=== PATIENT | female | born 1990 | race Caucasian/White ===

== ENCOUNTER 2016-10-10 01:36 | Emergency (ER) | payer BC ==
[2016-10-10 02:04] VITALS: BP 129/68; PULSE 70; RESP 16; TEMP 98.3; O2SAT 100
--- NOTE | 2016-10-10 02:08 | ED PDOC ---
HPI: Dental Pain/Injury Time Seen by Provider: 10/10/16 01:54 Chief Complaint (Nursing): Dental Pain Additional Complaint(s): 25yo F with no PMHx c/o dental pain. Pt had tooth extraction 3 days [address] Dr[address] Hills in [facility], rx tylenol 500mg PO QID prn and ibuprofen 800mg PO prn. a/w nausea. right tooth extraction, pain constant, not relieved with tylenol, ibuprofen. Last dose of pain meds 6 hours ago. Took tylenol 1000mg PO and 1 hr afterwards, ibuprofen 800mg PO, a/w numbness of the lower extremities which have resolved. Denies fever, chills, vomiting, discharge from tooth extraction. Past Medical History Reviewed: Historical Data, Nursing Documentation, Vital Signs Vital Signs: Last Vital Signs Temp 98.3 F 10/10/16 01:46 Pulse 70 10/10/16 01:46 Resp 16 10/10/16 01:46 BP 129/68 10/10/16 01:46 Pulse Ox 100 10/10/16 01:46 - Medical History PMH: No Chronic Diseases - Surgical History Surgical History: No Surg Hx - Family History Family History: States: No Known Family Hx - Social History Current smoker - smoking cessation education provided: No Ex-Smoker (has not smoked in the last 12 months): Yes Alcohol: None Drugs: Denies - Home Medications Home Medications: Ambulatory Orders Medication Instructions Recorded Acetaminophen/Codeine 1 tab PO Q6 PRN #4 tab 10/10/16 [Tylenol/Codeine 300 MG/30 MG] - Allergies Allergies/Adverse Reactions: Allergies Allergy/AdvReac Type Severity Reaction Status Date / Time No Known Allergies Allergy Verified 10/10/16 01:46 Review of Systems ROS Statement: Except As Marked, All Systems Reviewed And Found Negative ENT: Positive for: Other (dental pain) Physical Exam - Physical Exam Appears: Positive for: Non-toxic, No Acute Distress Head Exam: Positive for: ATRAUMATIC, NORMAL INSPECTION Skin: Positive for: Warm, Dry Eye Exam: Positive for: Normal appearance. Negative for: Scleral icterus ENT: Positive for: Other (no discharge, no swelling). Negative for: Pharyngeal Erythema, Tonsillar Swelling Neck: Positive for: Normal, Supple Cardiovascular/Chest: Positive for: Regular Rate, Rhythm Respiratory: Positive for: Normal Breath Sounds Gastrointestinal/Abdominal: Positive for: Bowel Sounds, Soft Back: Positive for: Normal Inspection Extremity: Positive for: Normal ROM. Negative for: Tenderness, Pedal Edema Neurologic/Psych: Positive for: Alert, Oriented - ECG O2 Sat by Pulse Oximetry: 100 Medical Decision Making Medical Decision Makin DDx medication side effect, dental pain checked on controlled substance tracker, pt not currently on controlled substance in the state urine preg zofran 4mg PO toradol 30mg IM reassessment 0304 pain, nausea improved pt ready to go home d/c home, follow up with dentist in 2-3 days, d/c with zofran and tylenol#3 Disposition - Clinical Impression Clinical Impression: Pain, dental - Disposition Disposition: Routine/Home Disposition Time: 03:10 Condition: STABLE Prescriptions: Acetaminophen/Codeine [Tylenol/Codeine 300 MG/30 MG] 1 tab PO Q6 PRN #4 tab PRN Reason: dental pain Instructions: Toothache (ED)
== END 2016-10-10 03:50 | disposition home or self-care (01) ==
LOC: H.ER 01:36
DX: K08.89 Other specified disorders of teeth and supporting structures (principal); Z87.891 Personal history of nicotine dependence
CPT/HCPCS: 81025; 96372; 99282; J1885

== ENCOUNTER 2016-10-22 19:32 | Emergency (ER) | payer BC ==
[2016-10-22 19:54] VITALS: BP 120/64; PULSE 79; RESP 16; TEMP 98.7; O2SAT 98
[2016-10-22] MEDS ORDERED: Sodium Chloride 0.9% 1,000 ML IV STA (21:09)
--- NOTE | 2016-10-22 21:11 | ED PDOC ---
HPI: Abdomen Time Seen by Provider: 10/22/16 20:32 Chief Complaint (Nursing): GI Problem Chief Complaint (Provider): Vomiting History Per: Patient Additional Complaint(s): 25 yo female, no PMH, presents to ED with complaints of acute onset of nausea, vomiting and diarrhea that developed ~ 15-20 minutes after ingesting [place] food. No fever or chills. Pt attempted to take Pepto, but vomited after the medication. Past Medical History Reviewed: Nursing Documentation, Vital Signs Vital Signs: Last Vital Signs Temp 98.7 F 10/22/16 19:50 Pulse 79 10/22/16 19:50 Resp 16 10/22/16 19:50 BP 120/64 10/22/16 19:50 Pulse Ox 98 10/23/16 05:08 - Medical History PMH: No Chronic Diseases - Surgical History Surgical History: No Surg Hx - Family History Family History: States: No Known Family Hx - Living Arrangements Living Arrangements: With Family - Home Medications Home Medications: Ambulatory Orders Medication Instructions Recorded Ciprofloxacin [Cipro] 500 mg PO BID #6 tab 10/23/16 Dicyclomine [Bentyl] 10 mg PO QID PRN #10 cap 10/23/16 - Allergies Allergies/Adverse Reactions: Allergies Allergy/AdvReac Type Severity Reaction Status Date / Time No Known Allergies Allergy Verified 10/22/16 19:50 Review of Systems ROS Statement: Except As Marked, All Systems Reviewed And Found Negative Gastrointestinal: Positive for: Nausea, Vomiting, Abdominal Pain, Diarrhea Physical Exam - Reviewed Nursing Documentation Reviewed: Yes Vital Signs Reviewed: Yes - Physical Exam Appears: Positive for: Well, Non-toxic, No Acute Distress Head Exam: Positive for: ATRAUMATIC, NORMAL INSPECTION, NORMOCEPHALIC Skin: Positive for: Normal Color, Warm, DRY Eye Exam: Positive for: EOMI, Normal appearance, PERRL ENT: Positive for: Normal ENT Inspection Neck: Positive for: Normal, Painless ROM Cardiovascular/Chest: Positive for: Regular Rate, Rhythm Respiratory: Positive for: CNT, Normal Breath Sounds Gastrointestinal/Abdominal: Positive for: Bowel Sounds, Soft, Tenderness ( diffuse). Negative for: Distended, Guarding Back: Positive for: Normal Inspection Extremity: Positive for: Normal ROM Neurologic/Psych: Positive for: Alert, Oriented - Laboratory Results Result Diagrams: 10/22/16 21:30 10/22/16 21:30 - ECG O2 Sat by Pulse Oximetry: 98 Medical Decision Making Medical Decision Making: IV access established and treatment initiated with IVF, Zofran, Morphine and Pepcid Labs resulted and reviewed with pt who demonstrated full understanding. Pt on re-eval reports pain continues. Pt medicated with Additional [address] scan obtained CT IMPRESSION: Sigmoid constipation. Small hazy left lower lung opacity. On second re-eval, pt reports feeling improved. Results of CT discussed. Pt able for discharge home at this time. Abdomen soft non tender and non distended. Pt remains afebrile Disposition - Clinical Impression Clinical Impression: Gastroenteritis, UTI (urinary tract infection) - Patient ED Disposition Is Patient to be Admitted: No - Disposition Disposition: Routine/Home Disposition Time: 05:08 Condition: STABLE Prescriptions: Ciprofloxacin [Cipro] 500 mg PO BID #6 tab Dicyclomine [Bentyl] 10 mg PO QID PRN #10 cap PRN Reason: Pain, Mild (1-3) Instructions: Urinary Tract Infection in Women (ED), Gastroenteritis (ED)
[2016-10-22 21:39] LABS: BASO % 0.1 % (0.0-2.0); EOS % 0.3 % (0.0-4.0); HEMATOCRIT 38.3 % (34.0-47.0); LYMPH # 0.6 K/uL (1.0-4.3); LYMPH % 6.3 % (20.0-40.0); MEAN CORPUSCULAR HGB CONC 34.5 g/dL (33.0-37.0); MEAN PLATELET VOLUME 7.1 fl (7.2-11.7); MONO # 0.3 K/uL (0.0-0.8); MONO % 2.7 % (0.0-10.0); NEUT # 8.9 K/uL (1.8-7.0); NEUT % 90.6 % (50.0-75.0); NRBC % 0.1 % (0.0-0.0); PLATELET COUNT 318 K/uL (130-400); RED CELL DISTRIBUTION WIDTH 13.7 % (11.5-14.5); WHITE BLOOD COUNT 9.8 K/uL (4.8-10.8)
[2016-10-22 21:51] LABS: ALB/GLOB RATIO 1.3 (1.0-2.1); ALKALINE PHOSPHATASE 75 U/L (38-126); ALT/SGPT 24 U/L (9-52); AMYLASE 55 U/L (30-110); AST/SGOT 20 U/L (14-36); BLOOD UREA NITROGEN 14 mg/dl (7-17); CALCIUM 9.2 mg/dL (8.4-10.2); CARBON DIOXIDE 27 mmol/L (22-30); CHLORIDE 101 mmol/L (98-107); GFR AFRICAN-AMERICAN > 60; GLUCOSE,RANDOM 100 mg/dL (65-105); LIPASE 22 U/L (23-300); POTASSIUM 3.8 MMOL/L (3.6-5.0); SODIUM 138 mmol/l (132-148); TOTAL PROTEIN 7.5 G/DL (6.3-8.2)
[2016-10-22 23:37] LABS: NEUTROPHIL 90 % (42-75); TOTAL CELLS COUNTED 100
[2016-10-23] MEDS ORDERED: Iohexol 240 (50 ml) PO ONE (00:16)
[2016-10-23 02:26] LABS: RBC URINE 5 /hpf (0-3); URINE BACTERIA RARE (<OCC); URINE BILIRUBIN NEGATIVE (NEGATIVE); URINE BLOOD NEGATIVE (NEGATIVE); URINE COLOR YELLOW (YELLOW); URINE GLUCOSE (UA) NEG (Normal); URINE KETONE TRACE mg/dL (NEGATIVE); URINE LEUKOCYTE ESTERASE SMALL Leu/uL (Negative); URINE PROTEIN NEGATIVE (NEGATIVE); URINE UROBILINOGEN 0.2-1.0 mg/dL (0.2-1.0); WBC URINE 8 /hpf (0-5)
[2016-10-23] MEDS ORDERED: Iohexol 300 100 ML IJ ONE (02:48)
[2016-10-23] MEDS ORDERED: Sodium Chloride 0.9% 50 ML IV ONE (02:48)
--- NOTE | 2016-10-23 05:00 | CT ---
EXAM: CT Abdomen and Pelvis With Intravenous Contrast CLINICAL HISTORY: 25 years old, female; Pain; Abdominal pain; Localized; Left lower quadrant (llq); Additional info: Llq pain TECHNIQUE: Axial computed tomography images of the abdomen and pelvis with intravenous contrast. This CT exam was performed using one or more of the following dose reduction techniques: automated exposure control, adjustment of the mA and/or kV according to patient size, and/or use of iterative reconstruction technique. Coronal and sagittal reformatted images were created and reviewed. CONTRAST: 95 mL of [id number] administered intravenously. EXAM DATE/TIME: 10/23/2016 12:16 AM COMPARISON: No relevant prior studies available. FINDINGS: Small amount of hazy opacity left lower lung that may just represent dependent atelectasis, however it is asymmetric and clinical correlation is recommended with regards to the possibility of early developing infiltrate. The liver is normal. The spleen is normal. The pancreas is normal. No gallstones. No hydronephrosis or perinephric stranding. The wall of the mid-distal left colon appears mildly thickened however this is partially due to incomplete distention. There is no stranding in the surrounding fat to suggest active inflammatory/infectious process. Moderate amount of stool within the sigmoid colon. A normal appendix is identified coronal images 40 through 55, axial series 2 images 60-64. No abnormalities of the uterus or ovaries identified. The IVC is prominent. It is likely an incidental finding although can also be associated with right-sided cardiac congestion. Given he patient's age, I favor the former. Clinical correlation recommended. IMPRESSION: Sigmoid constipation. Small hazy left lower lung opacity.
== END 2016-10-23 05:26 | disposition home or self-care (01) ==
LOC: H.ER 19:32
DX: K52.9 Noninfective gastroenteritis and colitis, unspecified (principal); R11.2 Nausea with vomiting, unspecified; R10.9 Unspecified abdominal pain
CPT/HCPCS: 74177; 80053; 81003; 81025; 82150; 83690; 85025; 96374; 96375; 99285; J2270; J2405; J7040; Q9966; Q9967

== ENCOUNTER 2017-08-01 16:53 | Emergency (ER) | payer BC ==
[2017-08-01 17:30] VITALS: BP 118/71; RESP 16; O2SAT 100
[2017-08-01 18:18] VITALS: PULSE 89; TEMP 98.7
--- NOTE | 2017-08-01 18:40 | CP.PCM.CON ---
History of Present Illness - History of Present Illness History of Present Illness: Podiatry Consult Note - Dr. Smith 26 year old female patient unremarkable PMHx seen and evaluated in ED for pain in right 4th toe. Patient hemodynamically stable and NAD. Patient states yesterday she stubbed her toe against a chair, and since has not been able to bear any weight in her forefoot. Patient admits to taking Ibuprofen which has not provided any pain relief. Currently, patient reports 6/10 pain that increases significantly when any pressure is placed onto her toe. Patient offers no other complaints. Denies N/V/F/D/C/SOB/calf pain. PMHx: unremarkable PSH: FH: non-contributory SH: occasional ETOH, denies tobacco/illicit drug use All: NKDA Review of Systems - Review of Systems All systems: reviewed and no additional remarkable complaints except (as per HPI ) Past Patient History - Past Social History Smoking Status: Never Smoked - PSYCHIATRIC Hx Substance Use: No - SURGICAL HISTORY Hx Surgeries: No - ANESTHESIA Hx Anesthesia: No Meds Home Medications: Home Medication List Medication Instructions Recorded Confirmed Type Ondansetron [Zofran] 4 mg PO Q6H PRN #10 tab 08/01/17 Rx Ranitidine HCl [Zantac 75] 75 mg PO BID #10 tablet 08/01/17 Rx traMADol [Ultram] 50 mg PO TID PRN #12 tab 08/01/17 Rx Allergies/Adverse Reactions: Allergies Allergy/AdvReac Type Severity Reaction Status Date / Time No Known Allergies Allergy Verified 10/22/16 19:50 Physical Exam - Constitutional Appears: Well, Non-toxic, No Acute Distress - Extremities Exam Additional comments: RLE focused physical exam: VASC: DP and PT pulses palpable 2/4. CFT <3 seconds noted to digits x5. Temperature gradient cool to cool. Non-pitting edema noted to 4th digit. NEURO: Light touch and protective sensation intact. DERM: No open lesions noted. Ecchymosis noted to medial aspect of 4th digit. Erythema noted circumfirentially around 4th digit. ORTHO: Pain on palpation 4th digit. Pain upon 4th MPJ ROM. Muscle strength 5/5 for all dorsiflexors, plantarflexors, inverters, and everters. - Neurological Exam Neurological exam: Alert, Oriented x3 - Psychiatric Exam Psychiatric exam: Normal Affect, Normal Mood Results - Vital Signs Recent Vital Signs: Last Vital Signs Temp 98.7 F 08/01/17 18:18 Pulse 89 08/01/17 18:18 Resp 16 08/01/17 17:25 BP 118/71 08/01/17 17:25 Pulse Ox 100 08/01/17 17:25 Assessment & Plan - Assessment and Plan (Free Text) Assessment: 26 year old female patient unremarkable PMHx with incomplete nondisplaced 4th proximal phalanx fracture secondary to trauma Plan: Patient seen and evaluated Discussed with attending, Dr. Smith Right foot XR reviewed: 4th proximal phalanx hairline fracture Right 3rd and 4th digits caitlin splinted Surgical shoe dispensed to patient. Advised patient to WBAT in surgical shoe at all times when ambulating. Recommend RICE Pain control per ED Stable per podiatry standpoint Thank you for the consult, please reconsult podiatry as needed
--- NOTE | 2017-08-02 08:03 | RAD ---
PROCEDURE: Right Foot Radiographs. HISTORY: 4th digit trauma COMPARISON: None. FINDINGS: BONES: No acute fracture or destructive bony lesion identified. JOINTS: Normal. SOFT TISSUES: Normal. OTHER FINDINGS: None. IMPRESSION: Unremarkable right foot radiographs.
--- NOTE | 2017-08-02 08:25 | CARD ---
APPROVED REPORT EKG Measurement Heart [id number] <Conclusion> Normal sinus rhythm with sinus arrhythmia Normal ECG
--- NOTE | 2017-08-11 13:41 | ED PDOC ---
Lower Extremity Pain/Injury Time Seen by Provider: 08/01/17 17:33 Chief Complaint (Nursing): Abdominal Pain Chief Complaint (Provider): R foot injury History Per: Patient Current Symptoms Are (Timing): Still Present Severity: Moderate Additional Complaint(s): 26yo female struck R foot on furniture day prior to visit injuring mostly 4th digit of foot. denies ankle, knee or hip pain/trauma. Also c/o epigastric burning after taking motrin for foot pain. Denies melena, hematemesis, fever or weakness. - Ankle/Foot Description Of Injury: Struck Against Object Past Medical History Reviewed: Historical Data Vital Signs: Last Vital Signs Temp 98.7 F 08/01/17 18:18 Pulse 89 08/01/17 18:18 Resp 16 08/01/17 17:25 BP 118/71 08/01/17 17:25 Pulse Ox 100 08/01/17 17:25 - Medical History PMH: No Chronic Diseases - Family History Family History: States: Unknown Family Hx - Home Medications Home Medications: Ambulatory Orders Medication Instructions Recorded Ciprofloxacin [Cipro] 500 mg PO BID #6 tab 10/23/16 Dicyclomine [Bentyl] 10 mg PO QID PRN #10 cap 10/23/16 Ondansetron [Zofran] 4 mg PO Q6H PRN #10 tab 08/01/17 Ranitidine HCl [Zantac 75] 75 mg PO BID #10 tablet 08/01/17 traMADol [Ultram] 50 mg PO TID PRN #12 tab 08/01/17 - Allergies Allergies/Adverse Reactions: Allergies Allergy/AdvReac Type Severity Reaction Status Date / Time No Known Allergies Allergy Verified 10/22/16 19:50 Review of Systems Musculoskeletal: Positive for: Foot Pain. Negative for: Neck Pain, Back Pain, Leg Pain Skin: Negative for: Lesions, Bruising Neurological: Negative for: Weakness, Numbness Physical Exam - Reviewed Nursing Documentation Reviewed: Yes Vital Signs Reviewed: Yes - Physical Exam Appears: Positive for: Well, Non-toxic Head Exam: Positive for: ATRAUMATIC Respiratory: Negative for: Respiratory Distress Extremity: Positive for: Tenderness (R foot 4th digit and metatarsals) - ECG O2 Sat by Pulse Oximetry: 100 - Radiology X-Ray: Interpreted by Mn X-Ray Interpretation: Other (likely hairline fracture 4th digit) Medical Decision Making Medical Decision Making: podiatry consult was obtained and surgical shoe fitted by podiatry resident, confirmed by MD pain medicine offered, pepcid given for gastric upset likely NSAID related, improved on re-eval and eating rice without issue. Rx provided followup podiatry Disposition - Clinical Impression Clinical Impression: Toe fracture, right, Gastritis - Patient ED Disposition Is Patient to be Admitted: No - Disposition Referrals: Podiatry Clinic [Outside] Disposition Time: 18:00 Condition: STABLE Additional Instructions: Followup with podiatry in one week. Take medication as directed for pain. Prescriptions: Ondansetron [Zofran] 4 mg PO Q6H PRN #10 tab PRN Reason: Nausea/Vomiting Ranitidine HCl [Zantac 75] 75 mg PO BID #10 tablet traMADol [Ultram] 50 mg PO TID PRN #12 tab PRN Reason: Pain, Moderate (4-7) Instructions: Toe Fracture, Gastritis Forms: [employer] ([place])
== END 2017-08-01 20:00 | disposition home or self-care (01) ==
LOC: H.ER 16:53
DX: S92.514A Nondisplaced fracture of proximal phalanx of right lesser toe(s), initial encounter for closed fracture (principal); W22.03XA Walked into furniture, initial encounter; Y92.9 Unspecified place or not applicable; K29.70 Gastritis, unspecified, without bleeding

== ENCOUNTER 2018-05-15 17:41 | Emergency (ER) | payer BC ==
[2018-05-15 20:10] VITALS: BP 115/63; PULSE 84; RESP 14; TEMP 98.4; O2SAT 97
--- NOTE | 2018-05-15 22:06 | ED PDOC ---
Lower Extremity Pain/Injury Time Seen by Provider: 05/15/18 20:37 Chief Complaint (Nursing): Lower Extremity Problem/Injury Chief Complaint (Provider): Lower Extremity Problem/Injury History Per: Patient History/Exam Limitations: no limitations Onset/Duration Of Symptoms: Days (2x) Current Symptoms Are (Timing): Still Present Severity: Moderate Additional Complaint(s): 27 year old female with no past medical history presents to the ED for an evaluation of a left lower extremity problem. Patient states that last night, she hit her right foot against wooden steps. Patient's right great toe had an acrylic nail over it, which started breaking, so she removed it herself. Patient reports experiencing pain to the distal toe today. Patient reports taking motrin prior to arrival. Patient denies having any other complaints. PMD: Justen Major MD - Ankle/Foot Description Of Injury: Struck Against Object Past Medical History Reviewed: Historical Data, Nursing Documentation, Vital Signs Vital Signs: Last Vital Signs Temp 98.4 F 05/15/18 20:04 Pulse 84 05/15/18 20:04 Resp 14 05/15/18 20:04 BP 115/63 05/15/18 20:04 Pulse Ox 97 05/15/18 20:04 - Medical History PMH: No Chronic Diseases - Surgical History Surgical History: - Family History Family History: States: No Known Family Hx - Social History Alcohol: Other (yes) Drugs: Denies - Home Medications Home Medications: Ambulatory Orders Medication Instructions Recorded Ciprofloxacin [Cipro] 500 mg PO BID #6 tab 10/23/16 Dicyclomine [Bentyl] 10 mg PO QID PRN #10 cap 10/23/16 Ondansetron [Zofran] 4 mg PO Q6H PRN #10 tab 08/01/17 Ranitidine HCl [Zantac 75] 75 mg PO BID #10 tablet 08/01/17 traMADol [Ultram] 50 mg PO TID PRN #12 tab 08/01/17 oxyCODONE/Acetaminophen [Percocet 1 ea PO Q6H PRN #10 tab 05/15/18 5/325 mg Tab] - Allergies Allergies/Adverse Reactions: Allergies Allergy/AdvReac Type Severity Reaction Status Date / Time No Known Allergies Allergy Verified 05/15/18 20:10 Review of Systems ROS Statement: Except As Marked, All Systems Reviewed And Found Negative Musculoskeletal: Positive for: Other (pain to the right great distal toe) Physical Exam - Reviewed Nursing Documentation Reviewed: Yes Vital Signs Reviewed: Yes - Physical Exam Appears: Positive for: Well, Non-toxic, No Acute Distress Head Exam: Positive for: ATRAUMATIC, NORMOCEPHALIC Skin: Positive for: Normal Color, Warm, Dry Extremity: Positive for: Tenderness (tenderness to the right great distal toe. (-) swelling, (-) erythema. (+) 1/3 of toenail remaining, looks thickened. (+) ecchymosis under nail.) Neurologic/Psych: Positive for: Alert, Oriented (3x) - ECG O2 Sat by Pulse Oximetry: 97 (RA) Pulse Ox Interpretation: Normal Medical Decision Making Medical Decision Makin:37 Initial impression: 27 year old female with right great toe pain, status post injury. Initial plan: * XRay foot right 3 views * reevaluation * Possibe fracture, left great toe * * Follow-up with podiatry, surgical shoe given. Scribe Attestation: Documented by Maricruz Gillespie, acting as a scribe for Isaura Gutierrez PA-C. Provider Scribe Attestation: All medical record entries made by the Scribe were at my direction and personally dictated by me. I have reviewed the chart and agree that the record accurately reflects my personal performance of the history, physical exam, medical decision making, and the department course for this patient. I have also personally directed, reviewed, and agree with the discharge instructions and disposition. Disposition - Clinical Impression Clinical Impression: Toe injury - Patient ED Disposition Is Patient to be Admitted: No - Disposition Disposition: Routine/Home Disposition Time: 03:22 Condition: GOOD Prescriptions: oxyCODONE/Acetaminophen [Percocet 5/325 mg Tab] 1 ea PO Q6H PRN #10 tab PRN Reason: Pain, Severe (8-10) Instructions: Toe Injury (DC) Forms: [employer] ([place]), [facility] ED School/Work Excuse
--- NOTE | 2018-05-16 10:44 | RAD ---
Date of service: 05/15/2018 PROCEDURE: Right Foot Radiographs. HISTORY: great toe injury COMPARISON: None. FINDINGS: BONES: There is an acute nondisplaced fracture in the tuft of the distal phalanx of the great toe. JOINTS: Normal. SOFT TISSUES: Severe soft tissue swelling in the great toe. OTHER FINDINGS: None. IMPRESSION: Acute nondisplaced fracture in the tuft of the distal phalanx of the great toe with surrounding severe soft tissue swelling. The final report has been tagged to the PA review and ER physician folder.
--- NOTE | 2018-05-17 13:07 | ED PDOC ---
ED Additional Note - Date & Time of Evaluation Date of Evaluation: 05/17/18 Time of Evaluation: 13:00 - Physician Additional Note Physician Additional Note: PA performing radiology call backs Right foot x-ray 05/15: Acute nondisplaced fracture in the tuft of the distal phalanx of the great toe with surrounding severe soft tissue swelling. Patient called and informed of x-ray findings. She continues to have significant pain and difficulty bearing weight. Getting some relief with Ibuprofen and Percocet. Pt referred to Dr. Tom for f/u of toe fracture and informed to continue same medications, keep her foot elevated as often as possible and to tape great toe to next toe to try to immobilize it. Patient demonstrated understanding and will call Podiatry for f/u today.
== END 2018-05-15 22:13 | disposition home or self-care (01) ==
LOC: H.ER 17:41
DX: S99.921A Unspecified injury of right foot, initial encounter (principal); W22.09XA Striking against other stationary object, initial encounter; S92.424A Nondisplaced fracture of distal phalanx of right great toe, initial encounter for closed fracture

== ENCOUNTER 2018-05-17 18:30 | Emergency (ER) | payer BC ==
--- NOTE | 2018-05-17 19:10 | ED PDOC ---
Lower Extremity Pain/Injury Time Seen by Provider: 05/17/18 18:50 Chief Complaint (Nursing): Lower Extremity Problem/Injury Chief Complaint (Provider): Toe Injury History Per: Patient History/Exam Limitations: no limitations Onset/Duration Of Symptoms: Days (since Tuesday05/14/18) Current Symptoms Are (Timing): Still Present Additional Complaint(s): Patient is a 27 year old female who presents to the ED for evaluation of continued left big toe pain. Patient reports that on 05/14/18 she stubbed her big toe against a stair. Patient reports she was seen in the ED on Tuesday05/15/18 and the preliminary XR read was normal. Patient reports today she received a call telling her to return to the ED as her big toe had a fracture per radiology report. Patient states she has been taking prescribed Percocet for pain, last dose at 6pm. Patient has no other complaints. PMD: cannot recall LMP: irregular secondary to control use Past Medical History Reviewed: Historical Data, Nursing Documentation, Vital Signs - Medical History PMH: No Chronic Diseases - Surgical History Surgical History: (x1) - Family History Family History: States: Unknown Family Hx - Home Medications Home Medications: Ambulatory Orders Medication Instructions Recorded Ciprofloxacin [Cipro] 500 mg PO BID #6 tab 10/23/16 Dicyclomine [Bentyl] 10 mg PO QID PRN #10 cap 10/23/16 Ondansetron [Zofran] 4 mg PO Q6H PRN #10 tab 08/01/17 RX: traMADol [Ultram] 50 mg PO TID PRN #12 tab 08/01/17 Ranitidine HCl [Zantac 75] 75 mg PO BID #10 tablet 08/01/17 oxyCODONE/Acetaminophen [Percocet 1 ea PO Q6H PRN #10 tab 05/15/18 5/325 mg Tab] - Allergies Allergies/Adverse Reactions: Allergies Allergy/AdvReac Type Severity Reaction Status Date / Time No Known Allergies Allergy Verified 05/15/18 20:10 Review of Systems ROS Statement: Except As Marked, All Systems Reviewed And Found Negative Musculoskeletal: Positive for: Other (left big toe pain) Physical Exam - Reviewed Nursing Documentation Reviewed: Yes Vital Signs Reviewed: Yes - Physical Exam Appears: Positive for: Well, Non-toxic, No Acute Distress (resting comfortably) Head Exam: Positive for: ATRAUMATIC, NORMOCEPHALIC Skin: Positive for: Normal Color, Warm, Dry Eye Exam: Positive for: Normal appearance ENT: Positive for: Other (Mucus membranes moist. Airway patent, (-) stridor. ) Neck: Positive for: Painless ROM, Supple Cardiovascular/Chest: Positive for: Regular Rate, Rhythm Respiratory: Positive for: Normal Breath Sounds Extremity: Positive for: Tenderness (to first toe of left foot), Capillary Refill (intact), Swelling (to first toe of left foot), Other (sensation intact). Negative for: Normal ROM (decreased flexion of left big toe secondary to pain), Calf Tenderness, Deformity Neurologic/Psych: Positive for: Alert, Oriented (x3), Gait (limping in ED). Negative for: Aphasia, Facial Droop - ECG O2 Sat by Pulse Oximetry: 99 (RA) Pulse Ox Interpretation: Normal Medical Decision Making Medical Decision Making: Initial Impression: toe fracture Plan: -Podiatry consult -Patient declined pain medication in ED. -Re-evaluation XR report from visit on 05/15/18: Date of service: 05/15/2018 PROCEDURE: Right Foot Radiographs. HISTORY: great toe injury COMPARISON: None. FINDINGS: BONES: There is an acute nondisplaced fracture in the tuft of the distal phalanx of the great toe. JOINTS: Normal. SOFT TISSUES: Severe soft tissue swelling in the great toe. OTHER FINDINGS: None. IMPRESSION: Acute nondisplaced fracture in the tuft of the distal phalanx of the great toe with surrounding severe soft tissue swelling. 1930 Podiatry at bedside. See consult note. СВЕТЛАНА encouraged. Follow up as instructed by podiatry. Patient instructed to follow-up with pmd / referral provided / the clinic in 1- 2 days without fail. Advised to take medication as prescribed from prior ED visit. Return to the emergency room at any time for any new or worsening symptoms. Patient states she fully agrees with and understands discharge instructions. States that she agrees with the plan and disposition. Verbalized and repeated discharge instructions and plan. I have given the patient opportunity to ask any additional questions. Disposition - Clinical Impression Clinical Impression: Toe fracture, Toe pain, left - Patient ED Disposition Is Patient to be Admitted: No Counseled Patient/Family Regarding: Studies Performed, Diagnosis, Need For Followup, Rx Given - Disposition Referrals: Refugio Tom DPM [Staff Provider] - Podiatry Clinic [Outside] Disposition: Routine/Home Disposition Time: 20:30 Condition: STABLE Additional Instructions: CONTINUE PAIN MEDICATION FROM PRIOR ED VISIT. FOLLOW UP WITH PODIATRY INSTRUCTED. The emergency medical care you received today was directed at your acute symptoms. If you were prescribed any medication, please fill it and take as directed. It may take several days for your symptoms to resolve. Return to the Emergency Department if your symptoms worsen, do not improve, or if you have any other problems. Please contact your doctor in 2 days for re-evaluation and follow up / or call one of the physicians/clinics you have been referred to that are listed on the Patient Visit Information form that is included in your discharge packet. Bring any paperwork you were given at discharge with you along with any medications you are taking to your follow up visit. Our treatment cannot replace ongoing medical care by a primary care provider (PCP) outside of the emergency department. Instructions: Toe Fracture, Toe Injury Forms: [employer] [facility] (Eth[place]ian), [facility] ED School/Work Excuse Print Language: PU[place] RICAN - POA Present On Arrival: None
[2018-05-17 19:37] VITALS: BP 146/81; PULSE 89; RESP 18; TEMP 99
--- NOTE | 2018-05-17 19:44 | CP.PCM.CON ---
History of Present Illness - History of Present Illness History of Present Illness: Podiatry consult note for attending Dr. Tom 27 year old female with no past medical history presents to the ED for an evaluation of a left big toe pain. Patient states that last Tuesday, she hit her right foot against wooden steps. Patient's right great toe had an acrylic nail over it, which started breaking, so she removed it herself. Patient reports experiencing pain to the distal toe. Patient states that she came to the ED where X-ray was done for her and shows no fracture. patient states that she received pain medication and sent home. Patient states that the pain didn't stop. She states that she feels moderate pain to her left big toe when she steps over it. Patient states that she was called today as her X-ray was reread and shows non displaced fracture to her left big toe. Patient denies having any other pedal complaints. She denies any recent F/N/V/C or SOB. PMH: None. PSH: . Allergies: NKDA. Social Hx: smokes occasionally, EtOH use occasionally, Denies Illicit drug use. Review of Systems - Review of Systems Review of Systems: As per HPI Past Patient History - Past Social History Smoking Status: Never Smoked - PSYCHIATRIC Hx Substance Use: No - SURGICAL HISTORY Hx Surgeries: Yes Hx Section: Yes - ANESTHESIA Hx Anesthesia: No Meds Allergies/Adverse Reactions: Allergies Allergy/AdvReac Type Severity Reaction Status Date / Time No Known Allergies Allergy Verified 05/15/18 20:10 Physical Exam - Constitutional Appears: Well, Non-toxic, No Acute Distress - Head Exam Head Exam: ATRAUMATIC, NORMOCEPHALIC - Extremities Exam Additional comments: B/L LE focused exam : Vasc: DP/PT 2/4 b/l. Cap refill < 3 sec to all digits. Temp gradient warm to cool from proximal to distal b/l. Mild non pitting edema noted at the left big toe. Neuro: Gross and protective sensations are intact b/l. Derm: No open lesions, No clinical signs of active infection b/l. L Hallucal toe nail is dystrophic, thickened, Darkly discolored and almost avulsed from the nail bed. MSK: Muscle power intact 5/5 b/l.Pain on palpating the Left hallux. - Neurological Exam Neurological exam: Alert, Oriented x3 - Psychiatric Exam Psychiatric exam: Normal Affect, Normal Mood Results - Vital Signs Recent Vital Signs: Last Vital Signs Temp 99.0 F 05/17/18 19:36 Pulse 89 05/17/18 19:36 Resp 18 05/17/18 19:36 BP 146/81 05/17/18 19:36 Pulse Ox 95 05/17/18 19:36 Assessment & Plan - Assessment and Plan (Free Text) Assessment: 27 y/o F patient seen and evaluated in the ED for Left hallux distal phalanx fracture and toe nail avulsion. Plan: Patient was seen and examined in the ED Plan discussed with attending Dr. Tom Charts and vitals reviewed; Afebrile Explained to the patient the need to do nail avulsion as the nail was almost out and there is apparently hematoma under the nail Benefits, risks and possible complication of the procedure explaint to the patient. Patient expressed verbal understanding. Patient agreed to do the procedure. Patient signed informed consent. Using 7 cc of lidocaine 1% (Lot [id number], EXP 29 Jan 2020). Left hallux was blocked in a ring block fashion. Under sterile condition, Using sterile nail avulsion kit. Patient left hallucal toe nail removed. Patient tolerated the procedure well with no complication. Applied bacitracin to the left hallux lateral border and then dressed with betadine, DSD and Adams bandage Patient instructed to soak her left foot in Epson salt each day. Patient instructed to apply bacitracin to her left hallux eachday and to dress it using DSD. Patient instructed to ambulate in a surgical shoe to her left foot RICE protocol educated to the patient Patient expressed verbal understanding Patient will follow-up at Dr. Tom's office. - Date & Time Date: 05/17/18 Time: 19:47
[2018-05-17 19:58] VITALS: O2SAT 99
[2018-05-17] MEDS ORDERED: Lidocaine 1% Inj (20ml) IJ STA (20:18)
[2018-05-17] MEDS ORDERED: Lidocaine 1% Inj (20ml) ONE (20:19)
== END 2018-05-17 20:45 | disposition home or self-care (01) ==
LOC: H.ER 18:30
DX: S92.425A Nondisplaced fracture of distal phalanx of left great toe, initial encounter for closed fracture (principal); W22.09XA Striking against other stationary object, initial encounter

== ENCOUNTER 2018-05-20 09:48 | Emergency (ER) | payer BC ==
[2018-05-20 09:55] VITALS: BMI 25.4
[2018-05-20 09:56] VITALS: TEMP 98.1; O2SAT 98
[2018-05-20] MEDS ORDERED: Oxycodone/Acetaminophen 5/325 mg Tab PO STA (10:20)
[2018-05-20] MEDS ORDERED: Oxycodone/Acetaminophen 5/325 mg Tab ONE (10:41)
--- NOTE | 2018-05-20 11:14 | ED PDOC ---
Lower Extremity Pain/Injury Time Seen by Provider: 05/20/18 10:07 Chief Complaint (Nursing): Lower Extremity Problem/Injury Chief Complaint (Provider): Lower Extremity Problem/Injury History Per: Patient Additional Complaint(s): Sasha Vigil is a 27 year old female with no past medical history, who presents to the emergency department for a wound check. Patient was seen here on May 15 and was diagnosed with a toe fracture. She was seen again on May 17 and was evaluated by podiatry. They removed the toe nail on her 1st digit. She reports to have increased pain of that foot now. Patient also reports that she ran out of Percocet and took Motrin without any relief. PMD: Justen Major Past Medical History Reviewed: Historical Data, Nursing Documentation, Vital Signs Vital Signs: Last Vital Signs Temp 98.1 F 05/20/18 09:55 Pulse 73 05/20/18 09:55 Resp 17 05/20/18 09:55 BP 116/79 05/20/18 09:55 Pulse Ox 98 05/20/18 09:55 - Surgical History Surgical History: (x1) - Family History Family History: States: Unknown Family Hx - Immunization History Hx Influenza Vaccination: Yes Hx Pneumococcal Vaccination: No - Home Medications Home Medications: Ambulatory Orders Medication Instructions Recorded Ciprofloxacin [Cipro] 500 mg PO BID #6 tab 10/23/16 Dicyclomine [Bentyl] 10 mg PO QID PRN #10 cap 10/23/16 Ondansetron [Zofran] 4 mg PO Q6H PRN #10 tab 08/01/17 Ranitidine HCl [Zantac 75] 75 mg PO BID #10 tablet 08/01/17 traMADol [Ultram] 50 mg PO TID PRN #12 tab 08/01/17 oxyCODONE/Acetaminophen [Percocet 1 ea PO Q6H PRN #10 tab 05/15/18 5/325 mg Tab] Acetaminophen with Codeine 1 tab PO Q6H PRN #10 tab 05/20/18 [Tylenol with Codeine No. 3 300 mg-30 mg] - Allergies Allergies/Adverse Reactions: Allergies Allergy/AdvReac Type Severity Reaction Status Date / Time No Known Allergies Allergy Verified 05/15/18 20:10 Review of Systems ROS Statement: Except As Marked, All Systems Reviewed And Found Negative Musculoskeletal: Positive for: Foot Pain Physical Exam - Reviewed Nursing Documentation Reviewed: Yes Vital Signs Reviewed: Yes - Physical Exam Appears: Positive for: No Acute Distress Head Exam: Positive for: ATRAUMATIC Skin: Positive for: Normal Color Cardiovascular/Chest: Positive for: Regular Rate, Rhythm. Negative for: Murmur Respiratory: Positive for: Normal Breath Sounds. Negative for: Respiratory Distress Extremity: Positive for: Swelling, Other (right first digit wound on foot looks clean and dry; (-) discharge, ecchymosis, bleeding) Neurologic/Psych: Positive for: Alert, Oriented - ECG O2 Sat by Pulse Oximetry: 98 (RA) Pulse Ox Interpretation: Normal Medical Decision Making Medical Decision Making: Time: 1020 Impression: wound check and refill Plan: --Oxycodone 1 tab PO 1025 Called podiatry for a bedside reevaluation. Scribe Attestation: Documented by Darryl Reddy, acting as a scribe for Jazmin Reyes MD. Provider Scribe Attestation: All medical record entries made by the Scribe were at my direction and personally dictated by me. I have reviewed the chart and agree that the record accurately reflects my personal performance of the history, physical exam, medical decision making, and the department course for this patient. I have also personally directed, reviewed, and agree with the discharge instructions and disposition. Disposition - Clinical Impression Clinical Impression: Visit for wound check, Prescription refill - Disposition Disposition: Routine/Home Disposition Time: 11:11 Condition: STABLE Additional Instructions: FOLLOW-UP WITH PODIATRY ADVISED. Prescriptions: Acetaminophen with Codeine [Tylenol with Codeine No. 3 300 mg-30 mg] 1 tab PO Q6H PRN #10 tab PRN Reason: Pain, Severe (8-10) Instructions: Toe Fracture, Nail Avulsion Forms: [employer] (Albanian)
[2018-05-20 11:57] VITALS: BP 112/70; PULSE 78; RESP 18
--- NOTE | 2018-05-20 16:19 | CP.PCM.CON ---
History of Present Illness - History of Present Illness History of Present Illness: Podiatry consult note for Dr. Tom 27F with no pmhx seen and evaluated at bedside for right great toe pain. Patient had nail removed from toe on the in the ED. States that her toe has been painful since and she has had no relief. States that she has been using a surgical shoe to ambulate and that she has already finished her pain medication. States that she has been ambulating on her foot and has not iced or elevated her foot often. She denies N/V/F/C/SOB/CP and has no other acute complaints. PMHx: denies PSHx: denies All: NKDA Past Patient History - Past Social History Smoking Status: Never Smoked - PSYCHIATRIC Hx Substance Use: No - SURGICAL HISTORY Hx Surgeries: Yes Hx Section: Yes - ANESTHESIA Hx Anesthesia: No Meds Home Medications: Home Medication List Medication Instructions Recorded Confirmed Type Acetaminophen with Codeine 1 tab PO Q6H PRN #10 tab 05/20/18 Rx [Tylenol with Codeine No. 3 300 mg-30 mg] Allergies/Adverse Reactions: Allergies Allergy/AdvReac Type Severity Reaction Status Date / Time No Known Allergies Allergy Verified 05/15/18 20:10 Physical Exam - Constitutional Appears: Well, Non-toxic, No Acute Distress - Head Exam Head Exam: ATRAUMATIC, NORMOCEPHALIC - Extremities Exam Additional comments: RLE focused Vasc: DP and PT pulses palpable; temp gradient warm to cool from proximal to distal; cap refill <3 seconds to all digits; mild edema noted to the left hallux Derm: left hallux nailbed granular with no evidence of wound formation; no cellulitis or clinical signs of infection; no streaking, minimal erythema noted along nailbed; no pus or drainage appreciated Ortho: mild pain on palpation of the left hallux distally, no other gross pathology or pain noted Neuro: gross and protective sensation intact - Neurological Exam Neurological exam: Alert, Oriented x3 - Psychiatric Exam Psychiatric exam: Normal Affect, Normal Mood Results - Vital Signs Recent Vital Signs: Last Vital Signs Temp 98.1 F 05/20/18 11:55 Pulse 78 05/20/18 11:55 Resp 18 05/20/18 11:55 BP 112/70 05/20/18 11:55 Pulse Ox 98 05/20/18 11:55 Assessment & Plan - Assessment and Plan (Free Text) Assessment: 27F with no pmhx seen and evaluated for left hallux pain Plan: Patient seen and evaluated Discussed in detail with JANNETTE Haney Past x-ray reviewed - educated on RICE protocol Instructed patient to rest and nonweightbear as much as possible Continue to ambulate in surgical shoe Dressed hallux with bacitracin and DSD Stable from podiatry standpoint, f/u with Dr. Tom in 1 week Thank you for the consult - Date & Time Date: 05/20/18 Time: 16:29
== END 2018-05-20 11:57 | disposition home or self-care (01) ==
LOC: H.ER 09:48
DX: Z76.0 Encounter for issue of repeat prescription (principal); Z48.00 Encounter for change or removal of nonsurgical wound dressing